=== PATIENT | female | born 1950 | race Caucasian/White ===

== ENCOUNTER → 2022-03-30 | Emergency (ER) | payer MEDICARE ==
[2022-03-30 05:31] LABS: ALBUMIN 2.9 g/dL (3.2-5.0); BILIRUBIN, TOTAL 2.2 mg/dL (0.0-1.4); CREATININE 1.4 mg/dL (0.5-1.0); POTASSIUM 3.3 mmol/l (3.5-5.1); TOTAL PROTEIN 4.4 g/dL (6.3-8.2)
[2022-03-30 05:34] LABS: HEMATOCRIT 37.9 % (37.0-47.0); HEMOGLOBIN 12.5 g/dl (12.0-16.0); MEAN CELL VOLUME 92.4 fL CALC (80.0-100.0); MEAN CORPUSCULAR HGB 30.5 pG CALC (26.0-32.0); NEUT# 0.46 thou/uL (2.00-7.15); RED BLOOD COUNT 4.1 mill/uL (4.20-5.60)
[2022-03-30 08:03] VITALS: BP 64/25
[2022-03-30 08:05] VITALS: BP 68/37
[2022-03-30 08:08] VITALS: BP 67/35
[2022-03-30 08:11] VITALS: BP 78/25
[2022-03-30 08:21] VITALS: BP 118/62
[2022-03-30 08:30] VITALS: BP 59/17
== END | disposition expired ==
LOC: ED 02:44
PROVIDERS: Emergency Medicine
PROC: 5A09357 Assistance with Respiratory Ventilation, Less than 24 Consecutive Hours, Continuous Positive Airway Pressure (ICD-10-PCS; principal; 2022-03-30)
PROC: 5A12012 Performance of Cardiac Output, Single, Manual (ICD-10-PCS; 2022-03-30)
PROC: 0BH17EZ Insertion of Endotracheal Airway into Trachea, Via Natural or Artificial Opening (ICD-10-PCS; 2022-03-30)
PROC: 5A1935Z Respiratory Ventilation, Less than 24 Consecutive Hours (ICD-10-PCS; 2022-03-30)
PROC: 3E033XZ Introduction of Vasopressor into Peripheral Vein, Percutaneous Approach (ICD-10-PCS; 2022-03-30)
DX: J18.9 Pneumonia, unspecified organism (principal); I11.0 Hypertensive heart disease with heart failure; I50.9 Heart failure, unspecified; I46.9 Cardiac arrest, cause unspecified; J98.4 Other disorders of lung; Z20.822 Contact with and (suspected) exposure to COVID-19